=== PATIENT | male | born 1985 | race African-American/Black ===

== ENCOUNTER 2020-03-27 13:22 | Emergency (ER) | payer SELFPAY ==
[2020-03-27 13:38] VITALS: BP 135/86; PULSE 102; RESP 16; TEMP 37.1; O2SAT 99
--- NOTE | 2020-03-27 14:10 | ED.URI ---
HPI - URI/Sore Throat General Chief Complaint: Upper Respiratory Infection Stated Complaint: sore throat Time Seen by Provider: 03/27/20 13:57 Source: patient and RN notes reviewed Mode of arrival: ambulatory Limitations: no limitations History of Present Illness HPI Narrative: Patient presents today with a 3-day history of sore throat, mild nasal congestion. Denies cough, fever, headache. Currently rates his sore throat 7/10 and has been taking ibuprofen with mild relief. Girlfriend presents with similar symptoms. MD elicited complaint: sore throat Related Data Allergies Allergy/AdvReac Type Severity Reaction Status Date / Time No Known Allergies Allergy Unknown Verified 03/27/20 13:46 Review of Systems Review of Systems: Narrative: CONSTITUTIONAL: Denies body aches, fever, chills, or sweats. EYES: Denies visual changes, redness, or discharge. ENT: Denies rhinorrhea, or otalgia. + Sore throat, congestion CARDIOVASCULAR: Denies chest pain, palpitations, or edema. RESPIRATORY: Denies cough or dyspnea. GASTROINTESTINAL: Denies abdominal pain, nausea, vomiting, or diarrhea. GENITOURINARY: Denies dysuria or hematuria. SKIN: Denies rash, itching, or wounds. MUSCULOSKELETAL: Denies back pain, joint pain, or myalgia. NEUROLOGIC: Denies headache, numbness, tingling, or weakness. PSYCH: Denies depression or anxiety. PMFSH Social History Social History Gender identity (if verbalized by the patient): Male Comments At time of signature, I have reviewed and agree with nursing past medical, surgical, social and family history unless otherwise noted. Please see nursing chart for further information. There is no relevant family history pertinent to the presenting complaint Exam Narrative: Exam Narrative: GENERAL: Well-appearing, well-nourished, and in no acute distress. HEAD: Normocephalic, atraumatic. EYES: EOMI. No redness or drainage. Conjunctivae normal. ENT: Mucous membranes pink and moist. Nares clear. No rhinorrhea. Left TM normal. Right TM obscured by cerumen impaction. Throat is erythematous with moderate edema. No exudate. Uvula midline. NECK: Normal AROM. Supple. Bilateral anterior cervical chain lymphadenopathy. CHEST: No respiratory distress. Clear to auscultation. HEART: Regular rate and rhythm. No murmur appreciated. Normal peripheral pulses. EXTREMITIES: Normal range of motion. No edema. SKIN: Warm, dry, no rash. Capillary refill normal. Normal skin turgor. NEURO: No focal deficits. Alert and oriented x3. Gait steady. PSYCH: Normal affect. No signs of depression or anxiety. Course Vital Signs Vital signs: Vital Signs Temperature 98.8 F 03/27/20 13:38 Pulse Rate 102 H 03/27/20 13:38 Respiratory Rate 16 03/27/20 13:38 Blood Pressure 135/86 03/27/20 13:38 Pulse Oximetry 99 03/27/20 13:38 Temperature 98.8 F 03/27/20 13:38 Pulse Rate 102 H 03/27/20 13:38 Respiratory Rate 16 03/27/20 13:38 Blood Pressure 135/86 03/27/20 13:38 Pulse Oximetry 99 03/27/20 13:38 Reviewed. Pt has been instructed to follow up with his PCP regarding his elevated blood pressure today. MDM - URI/Sore Throat Differential Diagnosis Differential diagnosis: Likely upper respiratory infection, otitis media, viral infection, pharyngitis and other (Strep throat) Lab Data Attestation: I reviewed the patient's lab results. Labs: Strep Screen Positive Group A Strep *(Reference Range: Negative)* Critical Care Time Critical Care Time Critical Care Time: No Discharge Plan Discharge Clinical Impression: Strep throat Patient Disposition: Home, Self-Care Condition: Stable Instructions: Antibiotic Form, Strep Throat (DC) Additional Instructions: Your rapid strep screen is positive today. Please take the amoxicillin as prescribed until gone. You will be contagious for 48 hours. Take Tylenol or ibuprofen at home for pain or fever. Follow-up with your doc
== END 2020-03-27 14:15 | disposition home or self-care (01) ==
PROVIDERS: Emergency Provider Nurse Practitioner
DX: J02.0 Streptococcal pharyngitis (principal)
CPT/HCPCS: 87880; 99213; G0463

== ENCOUNTER 2021-05-21 13:33 | Emergency (ER) | payer SELFPAY ==
[2021-05-21 13:41] VITALS: BP 129/89; PULSE 84; RESP 20; TEMP 36.3; O2SAT 100
--- NOTE | 2021-05-21 14:43 | ED.DENTAL ---
HPI - Dental/Oral General Chief complaint: Dental/Oral Stated complaint: Infection in my mouth Time Seen by Provider: 05/21/21 14:29 Source: patient Mode of arrival: ambulatory Limitations: no limitations History of Present Illness HPI Narrative: Patient complaining of right lower gum pain for the last 2 to 3 days, and does not remember when the last time been seen by a dentist. Patient denies any fever, chills, nausea, vomiting, difficulty swallowing Related Data Allergies Allergy/AdvReac Type Severity Reaction Status Date / Time No Known Allergies Allergy Unknown Verified 05/21/21 14:20 Review of Systems Review of Systems: CONSTITUTIONAL: Denies fever, chills, or sweats. EYES: Denies visual changes, redness, or discharge. ENT: Denies rhinorrhea, congestion, sore throat, or otalgia. CARDIOVASCULAR: Denies chest pain, palpitations, or edema. RESPIRATORY: Denies cough or dyspnea. GASTROINTESTINAL: Denies abdominal pain, nausea, vomiting, or diarrhea. GENITOURINARY: Denies dysuria or hematuria. SKIN: Denies rash or itching. MUSCULOSKELETAL: Denies back pain, joint pain, or myalgia. NEUROLOGIC: Denies headache, numbness, or weakness. PSYCHIATRIC: Denies anxiety or depression. [facility] Social History Social History Gender identity (if verbalized by the patient): Male Exam Narrative: General appearance: Well-developed, well-nourished Skin: Normal color Head: Normocephalic, nontraumatic Eyes: Clear conjunctiva ENT: Oropharynx normal, ears normal, nose normal Neck: Supple, nontender Chest and respiratory: Airway patent, no respiratory distress, no accessory muscle use Heart: Regular rate/rhythm Neurologic: Alert and oriented ?3, MATERIALS TECH is normal as tested, no gross motor deficit HENMT: Teeth image: 1. Swelling gum, dental decay Course Course Emergency Course: Stable Vital Signs Vital signs: Vital Signs Temperature 36.3 C L 05/21/21 13:41 Pulse Rate 84 05/21/21 13:41 Respiratory Rate 20 05/21/21 13:41 Blood Pressure 129/89 05/21/21 13:41 Pulse Oximetry 100 05/21/21 13:41 Temperature 36.3 C L 05/21/21 13:41 Pulse Rate 84 05/21/21 13:41 Respiratory Rate 20 05/21/21 13:41 Blood Pressure 129/89 05/21/21 13:41 Pulse Oximetry 100 05/21/21 13:41 MDM - Dental/Oral MDM Narrative Medical decision making narrative: Dental infection Critical Care Time Critical Care Time Critical Care Time: No Discharge Plan Discharge Clinical Impression: Dental caries Patient Disposition: Home, Self-Care Condition: Stable Instructions: Toothache (ED) Additional Instructions: Return if symptoms are worsening , call your family physician for appointment, take Tylenol as as needed for aches and pain, continue home medications. Prescriptions: New penicillin V potassium 500 mg tablet 500 mg PO Q6H Qty: 40 RF: 0 No Action amoxicillin 875 mg tablet 875 mg PO Q12H 10 Days Qty: 20 RF: 0 Follow-up/Referrals: Shaka King DMD [Physician] - 05/25/21 PHYSICIAN,DISTRIBUTION DRIVER [Primary Care Provider] - Stand Alone Forms: Work/School Release IP
[2021-05-21] MEDS: IBUPROFEN 400 MG TABLET 800 MG PO (15:00)
== END 2021-05-21 15:10 | disposition home or self-care (01) ==
PROVIDERS: Emergency Provider Emergency Medicine
DX: K02.9 Dental caries, unspecified (principal)
CPT/HCPCS: 99283; A9270

== ENCOUNTER 2023-05-24 12:45 | Emergency (ER) | payer OTHER, SELFPAY ==
[2023-05-24 12:50] VITALS: BP 137/89; PULSE 100; RESP 15; TEMP 36.6; O2SAT 100
--- NOTE | 2023-05-24 14:35 | ED.GENADULT ---
HPI - General Adult General Chief complaint: Urogenital-Male <Tiara De Jesus, LAW FIRM PARTNER - Last Filed: 05/24/23 19:06> Stated complaint: hematuria <Tiara De Jesus LAW FIRM PARTNER - Last Filed: 05/24/23 19:06> Time Seen by Provider: 05/24/23 16:58 <Tiara De Jesus, LAW FIRM PARTNER - Last Filed: 05/24/23 19:06> Source: patient <Ricardo Edwards DO - Last Filed: 05/27/23 04:33> Limitations: no limitations <Ricardo Edwards DO - Last Filed: 05/27/23 04:33> History of Present Illness HPI narrative: Sage Saab is a 38 y/o male who presents wt reports of urinating a lot of blood twice yesterday. Denies noticing any bright red today but urine was dark. Denies flank pain denies abdominal pain. Denies fever/chills. Denies any dysuria. <Tiara Crane November, LAW FIRM PARTNER - Last Filed: 05/24/23 19:06> Sage Saab is a 38 y/o male who presents wtih reports of urinating a lot of blood twice yesterday. Denies noticing any bright red today but urine was dark. Denies flank pain denies abdominal pain. Denies fever/chills. Denies any dysuria. Further HPI from physician: Patient presents to the emergency department complaint bloody urine. Patient states earlier today when he urinated his urine was very dark, did not notice any bright red blood or blood clots. Patient denies any recent injuries or recent illness. Patient denies any history of this in the past. Patient denies dysuria, urinary frequency, urinary urgency, melena, hematochezia, abdominal pain, nausea, vomiting, nor change medications, lightheadedness, chest pain, shortness of breath. Patient does admit to poor hydration as he has been very focused on maintaining good hydration. Patient does state he has sense urinated again and it appeared a lot improved and yellow in color but he wanted to get checked out. <Ricardo Edwards DO - Last Filed: 05/27/23 04:33> Related Data Allergies/adverse reactions: Allergies Allergy/AdvReac Type Severity Reaction Status Date / Time No Known Allergies Allergy Unknown Verified 05/24/23 15:25 <Tiara Crane November, LAW FIRM PARTNER - Last Filed: 05/24/23 19:06> Review of Systems Review of Systems: A 10 system review of systems was completed on the patient and is negative except for what is stated in the HPI. Nursing and ancillary documentation was reviewed. <Ricardo Edwards, DO - Last Filed: 05/27/23 04:33> PMFSH Social History Social History: Social History Gender identity (if verbalized by the patient): Male <Tiara Crane November, LAW FIRM PARTNER - Last Filed: 05/24/23 19:06> Comments At time of signature, I have reviewed and agree with nursing past medical, surgical, social and family history unless otherwise noted. Please see the nursing chart for further information. There is no relevant family history pertinent to the presenting complaint. <Ricardo Edwards, DO - Last Filed: 05/27/23 04:33> Exam Narrative: CONST: No acute distress. Well nourished. HENMT: Head is normocephalic and atraumatic. Moist mucous membranes. No posterior oropharynx erythema. EYES: No conjunctival icterus, injection, or pallor. PERRL. RESP: Able to speak in full sentences. Normal respiratory effort. CARDIO: Regular rate. Regular rhythm. GI: Nondistended. No tenderness to palpation. Soft. : No CVA tenderness to palpation. SKIN: No rashes or lesions noted on exposed skin. NEURO: Oriented x3. Moves all extremities. EXTREM: No pedal edema. PSYCH: Normal affect. <Ricardo Edwards, DO - Last Filed: 05/27/23 04:33> Course Vital Signs Vital signs: Vital Signs Temperature 97.9 F 05/24/23 12:50 Pulse Rate 100 05/24/23 12:50 Respiratory Rate 15 05/24/23 12:50 Blood Pressure 137/89 05/24/23 12:50 Pulse Oximetry 100 05/24/23 12:50 Temperature 97.9 F 05/24/23 12:50 Pulse Rate 100 05/24/23 12:50 Respiratory Rate 15 05/24/23 12:50 Blood Pressure 137/89 05/24/23 12:50 Pulse Oxim
[2023-05-24 15:45] LABS: Basophils Absolute Auto 0.1 K/mm3 (0.0-0.1); Eosinophils Absolute Auto 0.2 K/mm3 (0-0.3); Eosinophils Percent Auto 4.9 % (0-4.4); Hematocrit 51.8 % (42.0-52.0); Hemoglobin 16.3 g/dL (14.0-18.0); Immature Granulocyte Absolute 0.01 K/mm3 (0.00-0.031); Immature Granulocyte Percent A 0.2 % (0-0.5); Lymphocytes Absolute Auto 1.83 K/mm3 (0.9-3.2); Lymphocytes Percent Auto 37.2 % (18.3-44.2); Mean Corpuscular HGB Conc 31.5 g/dl (32-36); Mean Corpuscular Hemoglobin 25.3 pg (26-34); Mean Corpuscular Volume 80.3 fl (80-100); Mean Platelet Volume 8.6 fl (7.4-10.4); Monocytes Absolute Auto 0.4 K/mm3 (0.1-0.6); Monocytes Percent Auto 8.7 % (2.6-8.5); Neutrophils Absolute Auto 2.4 K/mm3 (1.3-6.7); Platelet Count Result 275 k/mm3 (150-375); Red Blood Count 6.45 M/mm3 (4.6-6.20); Red Cell Distribution Width 15.2 % (11.5-14.5); White Blood Count 4.9 K/mm3 (4.5-10.0)
[2023-05-24 15:51] LABS: Appearance Urine Clear (Clear); Bacteria Urine None Seen /hpf; Bilirubin Urine Negative (Negative); Blood Urine Negative (Negative); Color Urine Yellow (Yellow); Glucose Urine UA Negative (Negative); Ketones Urine Trace mg/dL (Negative); Leukocyte Esterase Ur 1+ LEU/UL (Negative); Nitrate Urine Negative (Negative); Non Pathogenic Casts 0-2; Potassium 4.4 mmol/L (3.4-5.0); Protein Urine Negative (Negative); RBC Urine 0-2 /hpf (0-2); Specific Grav Ur 1.028 (1.001-1.035); Squamous Epithelial Cell Urine None seen /hpf (Few); WBC Urine 21-50 /hpf
[2023-05-24 15:54] LABS: Anion Gap 7 mmol/L (8-16); Blood Urea Nitrogen 15 mg/dL (9-20); Calcium 9.4 mg/dL (8.4-10.2); Carbon Dioxide 30 mmol/L (22-30); Chloride 104 mmol/L (98-107); Estimated CRCL calculation 65 ml/min; Estimated Glomerular Filt Rate > 60; Glucose 91 mg/dL (65-110); Sodium 141 mmol/L (137-145)
[2023-05-24 15:58] LABS: Add Urine Microscopic? YES
[2023-05-24 17:12] LABS: Chlamydia trachomatis NOT DETECTED (NOT DETECTE); Neisseria gonorrhoeae PCR NOT DETECTED (NOT DETECTE)
== END 2023-05-24 18:12 | disposition home or self-care (01) ==
PROVIDERS: Nurse Practitioner Family; Emergency Provider Student in an Organized Health Care Education/Training Program
DX: N39.8 Other specified disorders of urinary system (principal)
CPT/HCPCS: 36415; 80048; 81001; 85025; 87086; 87491; 87591; 99283

== ENCOUNTER 2025-02-08 12:34 | Emergency (ER) | payer OTHER, SELFPAY ==
[2025-02-08 12:41] VITALS: BP 166/101; PULSE 68; RESP 16; TEMP 36.3; O2SAT 99
--- NOTE | 2025-02-08 13:00 | ED.NAVMDI ---
HPI - Nausea/Vomiting/Diarrhea General Chief complaint: Nausea/Vomiting/Diarrhea Stated complaint: Vomiting / diarrhea Time Seen by Provider: 02/08/25 12:45 Source: patient and RN notes reviewed Mode of arrival: ambulatory Limitations: no limitations History of Present Illness HPI Narrative: 40-year-old male Presents Express Care complaining of nausea, vomiting, diarrhea for 2 days. Patient denies any abdominal pain, fevers, body aches, chills. Patient last vomited approximately 3 hours ago. Patient has been able to keep fluids down since vomiting. Patient reports brown watery diarrhea. Patient denies any blood or mucus in stools. Patient has not tried any [id number] for relief. Patient denies recent travel outside the country. Patient said he ate [employer] yesterday and 2 hours after eating that he develops symptoms. Patient also reports that he has a hemorrhoid has irritated with diarrhea. Related Data Allergies Allergy/AdvReac Type Severity Reaction Status Date / Time No Known Allergies Allergy Unknown Verified 02/08/25 12:49 Review of Systems Review of Systems: CONSTITUTIONAL: Denies fever, chills, body aches, or sweats. EYES: Denies visual changes, redness, or discharge. ENT: Denies rhinorrhea, congestion, sore throat, or otalgia. CARDIOVASCULAR: Denies chest pain, palpitations, or edema. RESPIRATORY: Denies cough or dyspnea. GASTROINTESTINAL: Denies abdominal pain, bloody stools, hematochezia. Positive for nausea, vomiting, or diarrhea. GENITOURINARY: Denies dysuria or hematuria. SKIN: Denies rash or itching. MUSCULOSKELETAL: Denies back pain, joint pain, or myalgia. NEUROLOGIC: Denies headache, numbness, or weakness. PSYCHIATRIC: Denies anxiety or depression. All other systems reviewed are negative, except as documented in HPI. PMFSH Social History Social History Gender identity (if verbalized by the patient): Male Exam Narrative: GENERAL: This is a well-nourished, well-developed adult, in no apparent distress. They are non ill-appearing, nontoxic appearing. HEAD: normocephalic, atraumatic. EYES: Sclera clear/white. Vision is grossly intact. Conjunctiva normal bilaterally. Extraocular movements intact. EARS: External ears normal, Hearing grossly intact. NOSE: External nose normal THROAT: Mucous membranes moist NECK: Normal range of motion CARDIOVASCULAR: Regular rate and rhythm RESPIRATORY: Respiratory rate normal, respiratory effort nonlabored, no respiratory distress GASTROINTESTINAL: Abdomen soft, flat, non-tender, nondistended. Bowel sounds are active. No hepato-splenomegaly, or palpable masses. No guarding. No rebound tenderness. SKIN: warm, Dry, intact with no suspicious lesions or rash, good texture and turgor. NEURO: awake, alert, and oriented to person, place and time. There were no obvious focal neurologic abnormalities. EXTREMITIES: No joint tenderness, effusion, or edema noted. BACK: Nontender without deformity. No CVA tenderness. Course Course Emergency Course: Portions of this record may have been created with voice recognition software Level of Care: Express Care Visit Vital Signs Vital signs: Vital Signs Temperature 97.3 F L 02/08/25 12:41 Pulse Rate 68 02/08/25 12:41 Respiratory Rate 16 02/08/25 12:41 Blood Pressure 166/101 H 02/08/25 12:41 Pulse Oximetry 99 02/08/25 12:41 Oxygen Delivery Room Air 02/08/25 12:41 Temperature 97.3 F L 02/08/25 12:41 Pulse Rate 68 02/08/25 12:41 Respiratory Rate 16 02/08/25 12:41 Blood Pressure 166/101 H 02/08/25 12:41 Pulse Oximetry 99 02/08/25 12:41 Oxygen Delivery Room Air 02/08/25 12:41 MDM - Nausea/Vomiting/Diarrhea MDM Narrative Medical decision making narrative: Symptoms likely from a viral gastroenteritis. Will prescribe Zofran as needed for nausea and vomiting. Patient does not appear clinically dehydrated. Patient has been able to keep fluids down. Recommend patient to use preparation H or other beva-isl-tveqknk hemorrhoid creams to help soothe the pain. Discussed physical exam findings. Advised supportive measures and signs/symptoms to go to the ER. Pt is appropriate for outpt treatment and f/u. Differential Diagnosis Differential diagnosis: Likely traveler's diarrhea, food poisoning and gastroenteritis Discharge Plan Discharge Clinical Impression: Gastroenteritis Patient Disposition: Home Condition: Stable Instructions: Gastroenteritis (ED) Additional Instructions: It is likely you have a viral gastroenteritis. This is normally a self-limiting condition or resolve within 24-72 hours. However sometimes symptoms may linger on up to 7 days. It is recommended not to take anything for the diarrhea and allow the diarrhea to run its course. May use [id number]-ftqcmtz preparation H her other hemorrhoid creams as directed on bottle to help with the hemorrhoid pain. If the diarrhea persist and you feeling better, you may take Pepto-Bismol as needed to help control the diarrhea. Recommend hydration with plenty of fluids electrolyte supplementation such as Pedialyte. Follow-up PCP in 3-5 days. You may take Zofran as needed for nausea or vomiting. Your unable to keep anything down, he developed abdominal pain, fevers, uncontrollable diarrhea, concerns of dehydration, black or tarry stools, or any other concerns please go to the ER immediately. Patient Language: Dominican Prescriptions: New ondansetron 4 mg tablet,disintegrating 4 mg PO Q8H PRN (Reason: nausea and vomiting) Qty: 12 0RF Follow-up/Referrals: PHYSICIAN,EMBOSSING TOOL SETTER [Primary Care Provider] - Stand Alone Forms: Work/School Release IP Time of Disposition: 12:56
== END 2025-02-08 13:04 | disposition home or self-care (01) ==
DX: K52.9 Noninfective gastroenteritis and colitis, unspecified (principal)
CPT/HCPCS: 99213; G0463

== ENCOUNTER 2025-04-24 13:34 | Emergency (ER) | payer OTHER, SELFPAY ==
--- NOTE | 2025-04-24 13:35 | ED_ITS ---
HPI - General Adult General Chief complaint: Dental/Oral Stated complaint: tooth pain Time Seen by Provider: 04/24/25 13:35 Source: patient Mode of arrival: ambulatory Limitations: no limitations History of Present Illness HPI narrative: Pt is a 40 y/o male presenting with c/o L. sided facial swelling. Additional sx reported include L. lower dental pain. Reports cracking a L. lower tooth several months ago--denies any issues until this morning. 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 NO additional complaints. Related Data Allergies Allergy/AdvReac Type Severity Reaction Status Date / Time No Known Allergies Allergy Unknown Verified 04/24/25 13:36 Review of Systems 2 Review of Systems: CONSTITUTIONAL: Denies body aches, fever, chills, or sweats. EYES: Denies visual changes, redness, or discharge. ENT: reports left lower dental pain, left-sided facial swelling.Denies rhinorrhea, congestion, sore throat, or otalgia. CARDIOVASCULAR: Denies chest pain, palpitations, or edema. RESPIRATORY: Denies cough or dyspnea. GASTROINTESTINAL: Denies abdominal pain, nausea, vomiting, or diarrhea. GENITOURINARY: Denies dysuria or hematuria. SKIN: Denies rash, itching, or wounds. MUSCULOSKELETAL: Denies back pain, joint pain, or myalgia. NEUROLOGIC: Denies headache, numbness, tingling, or weakness. PSYCH: Denies depression or anxiety. All systems reviewed & are unremarkable except as noted in HPI and below PMFSH Social History Social History Gender identity (if verbalized by the patient): Male Exam 2 Narrative: GENERAL: Well-appearing, well-nourished, and in no acute distress. HEAD: Normocephalic, atraumatic. EYES: EOMI. No redness or drainage. Conjunctivae normal. ENT: Mucous membranes pink and moist. Nares clear. No rhinorrhea. TMs normal bilaterally. Throat normal. Uvula midline. No trismus. No evidence of Caio angina. NECK: Normal AROM. Supple. No lymphadenopathy. CHEST: No respiratory distress. HEART: Regular rate EXTREMITIES: Normal range of motion. SKIN: Warm, dry, no rash. Capillary refill normal. Normal skin turgor. NEURO: No focal deficits. Alert and oriented x3. Gait steady. PSYCH: Normal affect. No signs of depression or anxiety. HENMT: Head images: 1. Mild edema without associated fluctuance, erythema, lymphatic streaking Teeth image: 1. TTP. Carious 2. carious 3. broken down to the gumline. 4. pin point gingival abscess, easily ruptured with palpation over area. Course Course Level of Care: Express Care Visit Medical Decision Making MDM Narrative Medical decision making narrative: Discussed elevated blood pressure readings with patient and advised daily BP monitoring and f/u with PCP if persisting. Discharge Plan Discharge Clinical Impression: Toothache, Dental abscess, Dental caries, Elevated blood pressure reading in office without diagnosis of hypertension Patient Disposition: Home Condition: Stable Instructions: Antibiotic Form, Dental Abscess (ED) Additional Instructions: follow-up with dentist CE. Go straight to ER should your symptoms become worse or should any new symptoms develop Patient Language: Albanian Prescriptions: New penicillin V potassium 500 mg tablet 500 mg PO Q12H 10 Days Qty: 20 0RF ibuprofen 600 mg tablet 600 mg PO QID PRN (Reason: pain) Qty: 30 0RF Follow-up/Referrals: UNKNOWN,DOCTOR [Non-Staff] - 04/25/25 Time of Disposition: 13:41
[2025-04-24 13:41] VITALS: BP 132/93; PULSE 86; RESP 16; TEMP 36.7; O2SAT 100
== END 2025-04-24 13:50 | disposition home or self-care (01) ==
PROVIDERS: Emergency Provider Registered Nurse
DX: K04.7 Periapical abscess without sinus (principal); K02.9 Dental caries, unspecified; R03.0 Elevated blood-pressure reading, without diagnosis of hypertension
CPT/HCPCS: 99213; G0463

== ENCOUNTER 2025-07-05 16:20 | Emergency (ER) | payer OTHER, SELFPAY ==
[2025-07-05 16:25] VITALS: BP 136/93; PULSE 80; RESP 18; TEMP 36.3; O2SAT 100
--- NOTE | 2025-07-05 16:50 | ED.URI ---
HPI - URI/Sore Throat General Chief Complaint: Upper Respiratory Infection Stated Complaint: Vomiting/Sinus Source: patient Mode of arrival: ambulatory Limitations: no limitations History of Present Illness HPI Narrative: this is a 40-year-old male patient who presents to the urgent care for complaints of nausea vomiting and diarrhea that began yesterday afternoon, patient states he has not had any further nausea or vomiting he has not had any further diarrhea since around noon today. He has been able to keep down some fluids without any concern. He denies any nausea currently. He states he had some abdominal cramping only with the diarrhea and is post vomiting. He has no pain currently. No fever, no cough, sore throat ordered dizziness. Patient is missing work today due to his illness and will need a work note for today. He denies any other distress or concerns MD elicited complaint: other ( nausea vomiting diarrhea since yesterday) Onset (ago): day(s) (1) Consistency: now resolved Severity: mild Exacerbating factors: nothing Relieving factors: nothing Context: sick contacts Associated symptoms: denies other symptoms Treatments prior to arrival: none Related Data Allergies Allergy/AdvReac Type Severity Reaction Status Date / Time No Known Allergies Allergy Unknown Verified 07/05/25 16:47 Review of Systems Review of Systems: All systems reviewed & are unremarkable except as noted in HPI and below PMFSH Social History Social History Gender identity (if verbalized by the patient): Male Exam Const: General: healthy appearing Nutritional Appearance: well nourished Orientation/consciousness: patient oriented x3 Limitations: no limitations HENMT: Head: normal to inspection Ears: external ears normal Face/Nose/Sinus: Normal external nose present Face and sinus: normal facial exam Mouth: Yes Normal oral and palatal mucosa present Teeth and gingiva: dentition normal Throat: posterior oropharynx normal Eyes: Conjunctivae: conjunctivae normal Pupils: Equal, round and reactive pupils present EOM: EOMs intact bilaterally Neck: Neck: normal visual inspection Chest: Chest palpation & inspection: normal inspection of the chest Resp: Effort & Inspection: normal respiratory effort Auscultation: clear to auscultation bilaterally Cardio: Rate: regular rate Rhythm: regular rhythm GI: GI Palp: Yes Soft to palpation Auscultation: normal bowel sounds Skin: General skin exam: normal color Rashes: no rashes Wounds: no wounds Neuro: General: patient oriented x3 Cranial nerves: Yes Nystagmus not present Speech: normal speech Gait exam (Neuro): Normal gait present Extrem: General: normal to inspection and no clubbing, cyanosis or edema Psych: Mental Status: mental status grossly normal Affect: normal affect Attitude: cooperative Course Course Emergency Course: a Level of Care: Express Care Visit Vital Signs Vital signs: Vital Signs Temperature 97.3 F L 07/05/25 16:25 Pulse Rate 80 07/05/25 16:25 Respiratory Rate 18 07/05/25 16:25 Blood Pressure 136/93 H 07/05/25 16:25 Pulse Oximetry 100 07/05/25 16:25 Oxygen Delivery Room Air 07/05/25 16:25 Temperature 97.3 F L 07/05/25 16:25 Pulse Rate 80 07/05/25 16:25 Respiratory Rate 18 07/05/25 16:25 Blood Pressure 136/93 H 07/05/25 16:25 Pulse Oximetry 100 07/05/25 16:25 Oxygen Delivery Room Air 07/05/25 16:25 MDM MDM Narrative Medical decision making narrative: this is a 40-year-old male patient who presents to the urgent care for complaints of nausea vomiting and diarrhea that began yesterday afternoon, patient states he has not had any further nausea or vomiting he has not had any further diarrhea since around noon today. He has been able to keep down some fluids without any concern. He denies any nausea currently. He states he had some abdominal cramping only with the diarrhea and is post vomiting. He has no pain currently. No fever, no cough, sore throat ordered dizziness. Patient is missing work today due to his illness and will need a work note for today. He denies any other distress or concerns vital signs stable COVID and influenza test were ordered COVID influenza was negative educated patient on exam findings and with his improvement encourage this may be possible gastroenteritis versus just nausea vomiting diarrhea episode. Educated that we will continue to monitor him, push fluids, follow-up with primary as needed. However gave strict instructions on return to the emergency department any worrisome signs or symptoms such as increased abdominal pain, worsening nausea vomiting or return of diarrhea. He verbalized understanding he is agreeable to plan. Will send a prescription for Zofran well. Educated the patient to Increase fluids, rest, very bland soft diet and increase as tolerated. take zofran every 6-8 hours as needed for nausea/vomiting, if pain returns or worsens return to the emergency department for further workup, Follow-up with her primary care provider as needed. Differential Diagnosis Differential Diagnosis: covid influenza, gastroenteritis Medical Records I have reviewed the following patient records and this information was taken into consideration when formulating the assessment and plan.: previous labs and previous clinic visits Lab Data MDM Lab Attestation statement: I personally reviewed the patient's lab results. Labs: Lab Results 07/05/25 Range/Units 16:29 POC Influenza A Ag Negative (Negative) POC Influenza B Ag Negative (Negative) POC SARS CoV-2 Ag Negative (Negative) Discharge Plan Discharge Clinical Impression: Nausea & vomiting Qualifiers: Vomiting type: unspecified Qualified Code(s): R11.2 - Nausea with vomiting, unspecified Diarrhea Qualifiers: Diarrhea type: unspecified type Qualified Code(s): R19.7 - Diarrhea, unspecified Patient Disposition: Home Condition: Stable Instructions: Acute Nausea and Vomiting (ED), Acute Diarrhea (ED) Additional Instructions: Increase fluids rest very bland soft diet and increase as tolerated. take zofran every 6-8 hours as needed for nausea/vomiting if pain returns or worsens return to the emergency department for further workup Follow-up with her primary care provider as needed Patient Language: Turkmen Prescriptions: New ondansetron 4 mg tablet,disintegrating 4 mg PO Q8H PRN (Reason: nausea and vomiting) Qty: 9 0RF Follow-up/Referrals: PHYSICIAN NOT ON STAFF,NONSTAFF [Primary Care Provider] Stand Alone Forms: Work/School Release IP Time of Disposition: 16:58
[2025-07-05 16:53] LABS: EDCOVIDSCREEN Negative (Negative); EDINFLUASCREEN Negative (Negative); EDINFLUBSCREEN Negative (Negative)
== END 2025-07-05 17:01 | disposition home or self-care (01) ==
PROVIDERS: Emergency Provider Nurse Practitioner Family
DX: R11.2 Nausea with vomiting, unspecified (principal); R19.7 Diarrhea, unspecified; Z20.822 Contact with and (suspected) exposure to COVID-19
CPT/HCPCS: 87426; 87804; 99213; G0463